=== PATIENT | female | born 2005 | race Caucasian/White ===

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

== ENCOUNTER → 2025-01-02 13:53 | Outpatient (BNVA) | payer OTHER, SELFPAY | PROVIDERS: PCP Family Medicine; Visit Provider Clinical Nurse Specialist Adult Health | DX: Z30.011 Encounter for initial prescription of contraceptive pills (principal); R35.0 Frequency of micturition | CPT/HCPCS: 81000 ==